=== PATIENT | male | born 1990 | race Hispanic/Latino ===

== ENCOUNTER 2017-03-17 16:09 | Emergency (ER) | payer OTHER ==
[~2017-03-17] VITALS: Ht 182.9 cm; Wt 106.6 kg
[2017-03-17] MEDS ORDERED: NORCO 10-325 T1 EACH PO (17:13)
[2017-03-17] MEDS ORDERED: CIPRO250 MG PO (17:13)
== END 2017-03-17 17:18 | disposition home or self-care (01) ==
LOC: ED 16:09
DX: N45.2 Orchitis (principal)
CPT/HCPCS: 99283

== ENCOUNTER 2017-03-29 17:49 | Emergency (ER) | payer OTHER ==
[~2017-03-29] VITALS: Ht 182.9 cm; Wt 106.6 kg
[~2017-03-29 17:49] MED LIST: CIPRO250 MG PO; NORCO 10-325 T1 EACH PO
[2017-03-29] MEDS ORDERED: NORCO 5-325 TA1 EACH PO (19:57)
[2017-03-29] MEDS ORDERED: CIPRO500 MG PO (19:57)
== END 2017-03-29 20:03 | disposition home or self-care (01) ==
LOC: ED 17:49
DX: N45.3 Epididymo-orchitis (principal)
CPT/HCPCS: 76870; 81001; 99284